=== PATIENT | female | born 1980 | race African-American/Black ===

== ENCOUNTER 2020-02-22 00:41 | Outpatient (CLI) | payer BC, SELFPAY ==
[2020-02-22 19:20] LABS: SARS-CoV-2 RNA PCR Positive
== END 2020-02-22 00:42 | disposition home or self-care (01) ==
LOC: ANHCOVIDDT 00:42
PROVIDERS: Anesthesiology; PCP Physician Assistant; Visit Provider Obstetrics & Gynecology
DX: U07.1 COVID-19 (principal)
CPT/HCPCS: 87635; C9803; U0003

== ENCOUNTER 2020-03-28 00:36 | Outpatient (CLI) | payer BC, SELFPAY ==
[2020-03-28 19:34] LABS: SARS-CoV-2 RNA PCR Negative
== END 2020-03-28 00:37 | disposition home or self-care (01) ==
LOC: ANHCOVIDDT 00:37
PROVIDERS: PCP Physician Assistant; Visit Provider Obstetrics & Gynecology
DX: Z01.812 Encounter for preprocedural laboratory examination (principal); Z20.828 Contact with and (suspected) exposure to other viral communicable diseases
CPT/HCPCS: 87635; C9803; U0003

== ENCOUNTER 2020-03-30 01:22 | Day surgery (SDC) | payer BC, SELFPAY ==
[2020-02-11 15:21] VITALS: BMI 43.5
[2020-03-30] VITALS (8 sets, daily range): BP systolic 100–157; BP diastolic 56–93; PULSE 76–98; RESP 15–20; TEMP 36.4–36.6; O2SAT 98–100
--- NOTE | 2020-03-30 07:05 | WPDHPUPDATE1 ---
History and Physical Update Update Date/Time: 03/30/20 07:05 History and Physical has been reviewed, including an updated exam of the patient. There are NO changes in the patient's condition. Risks, benefits, and alternatives have been discussed and questions answered. Patient agrees to proceed with procedure.
[2020-03-30] MEDS: ACETAMINOPHEN 500 MG TABLET 1000 MG PO (07:38)
[2020-03-30] MEDS: LACTATED RINGERS 1,000 ML 30 ML IV CONT ×2 (07:38→09:39)
[2020-03-30] MEDS: KETOROLAC 15 MG/ML VIAL (*BKC) IV PUSH (07:38)
--- NOTE | 2020-03-30 07:49 | WPDANESEPPF ---
Anes - Initial Pre Proc Eval Procedure: Operation Date: 03/30/20 08:15 Proposed Procedures p Laparoscopic Bilateral Tubal Sterilization with Cautery - Edi Arvizu MD s Laparoscopic Left Ovarian Cystectomy - Edi Arvizu MD Date/Time: 03/30/20 07:49 Surgeon: Edi Arvizu MD Pre Op Diagnosis: sterilization, left ovarian cyst Patient Data Age: 39 Gender: F Height: 5 ft 7 in Weight: 126.1 kg Allergies Allergy/AdvReac Type Severity Reaction Status Date / Time Penicillins Allergy Severe HIVES/THROAT Verified 03/16/20 13:14 SWELLING Home Medications Medication Instructions Recorded Confirmed Type cetirizine 10 mg PO DAILY 02/11/20 03/16/20 History elderberry fruit and flower 1 cap PO DAILY 02/11/20 03/16/20 History meloxicam 7.5 mg PO DAILY 02/11/20 03/16/20 History Patient hx anesthesia problems: post op nausea/vomiting Family hx anesthesia problems: none PMFSH Past Medical History Medical History Morbid obesity GABE (obstructive sleep apnea) Social History Social History Smoking status: Never smoker Substance use type: does not use Living arrangements: with family Gender identity (if verbalized by the patient): Female Spiritual care concerns: No Anes - Eval Final PreProcedure Day of Procedure 03/30/20 07:49 Patient weight: morbidly obese Heart: regular rate and rhythm Lungs: clear to auscultation Airway: Mallampati scale class II Neurological: alert and oriented Last oral intake: >/= 8 hours ASA classification: III Emergent: no Anesthetic plan: proceed Anesthesia type and monitoring: general ETT and standard monitoring Informed Consent: The patient's anesthetic plan and its attendant risks and benefits were discussed with the patient/family/POA. Questions were solicited and answers provided to the satisfaction of the patient/family/POA.
[2020-03-30] MEDS: SCOPOLAMINE 1.5 MG PATCH TRANSDERM (07:56)
--- NOTE | 2020-03-30 09:49 | P.OP_ITS ---
Procedure Note - Detailed Date of procedure: 03/30/20 Pre-op diagnosis: sterilization, left ovarian cyst Post-op diagnosis: same ( Hemoperitoneum, bilateral ovarian cysts) Procedure performed: Laparoscopic bilateral tubal ligation, bilateral ovarian cystectomy Description of procedure: The patient was taken the operating room. She was prepped and draped in the dorsal lithotomy position after induction of general anesthesia. A 5 mm left upper quadrant incision was made in the abdominal skin with a scalpel. A 5 mm trocar was inserted the intra-abdominal cavity under direct visualization of the scope. A 5 mm left lower quadrant incision was made with the scalp on the abdominal skin and a 5 mm trocar was inserted the intra- abdominal cavity under direct visualization of the scope. A 5 mm infraumbilical incision was made with scalpel and a 5 mm trocar was inserted into the intra- abdominal cavity under direct visualization of the scope. The bilateral ovarian cystectomy was performed using cautery and sharp dissection. The cysts were each on removed and the capsules were removed and the cut surfaces were cauterized. The tubal ligation was performed. in the ampullary region of each fallopian tube a 2 cm segment was completely desiccated using bipolar cautery. The pelvis was irrigated with copious amounts of normal saline. The pneumoperitoneum was reduced. The trocars were removed. 2The patient was taken recovery room stable condition. Sponge lap and needle counts were correct x2. Anesthesia: GETA Surgeon: Edi Arvizu MD Estimated blood loss (mL): 20 Drains: No Packing: No Complications: No immediate complications Condition: stable Disposition: PACU Findings: Hemoperitoneum in the pelvis, bilateral ovarian cysts approximately 3 cm.
== END 2020-03-30 11:35 | disposition home or self-care (01) ==
PROVIDERS: PCP Physician Assistant; Visit Provider Obstetrics & Gynecology
PROC: (CPT 58671; principal; 2020-03-30 08:15)
PROC: (CPT 49320; 2020-03-30 08:15)
DX: Z30.2 Encounter for sterilization (principal); N83.12 Corpus luteum cyst of left ovary; N83.11 Corpus luteum cyst of right ovary
CPT/HCPCS: 58670; 58662; 88305; A9270; J0330; J1100; J1885; J2250; J2405; J2704; J2710; J3010; J7030; J7120

== ENCOUNTER → 2020-04-06 14:39 | Outpatient (CLI) | payer BC, SELFPAY ==
--- NOTE | ~2020-04-06 | CT_ITS ---
EXAMINATION: CT abdomen pelvis w con DATE: 04/06/2020 15:09 INDICATION: Postoperative abdominal pain for one week. Nausea. Left ovarian mass, left fallopian tube and IUD were removed. TECHNIQUE: Computed tomography (CT) of the abdomen and pelvis was performed with 100 cc Omnipaque 350 intravenous contrast. Automated exposure control and iterative reconstruction technique were employe d. Exam dose: 1029.30 mGy-cm total exam DLP. COMPARISON: 07/15/2019 pelvic ultrasound examination FINDINGS: The lung bases are clear of infiltrate or consolidation. Normal heart size. No pericardial or pleural effusion. Multiple gallstones are noted within a contracted gallbladder. No bile duct or pancreatic duct dilata tion. No hepatic, splenic, pancreatic space-occupying mass lesion. Normal morphology of the adrenal glands. No renal mass lesion or hydroureteronephrosis. Normal appendix. Normal caliber of the abdominal aorta. No intraperitoneal or retroperitoneal or pelvic mass lesion or adenopathy or ascites. The uterus, adnexal areas and urinary bladder are unremarkable. Included skeletal structures are unremarkable. IMPRESSION: Cholelithiasis Reviewed, dictated and finalized at [facility] Reviewed, dictated and finalized at [facility]. IMPRESSION: Cholelithiasis
== END ==
PROVIDERS: Visit Provider Obstetrics & Gynecology
DX: G89.18 Other acute postprocedural pain (principal); K80.20 Calculus of gallbladder without cholecystitis without obstruction
CPT/HCPCS: 74177; Q9967

== ENCOUNTER 2021-02-24 18:45 | Emergency (ER) | payer BC, SELFPAY ==
--- NOTE | ~2021-02-24 | CT_ITS ---
EXAMINATION: CT abdomen pelvis w con DATE: 02/25/2021 00:48 INDICATION: Right lower quadrant abdominal pain TECHNIQUE: Computed tomography (CT) of the abdomen and pelvis was performed with 100 cc Omnipaque 350 intravenous contrast. Automated exposure control and iterative reconstruction technique were employe d. Exam dose: 1440.55 mGy-cm total exam DLP. COMPARISON: 04/06/2020 CT abdomen pelvis FINDINGS: The lung bases are clear. Normal heart size. No pericardial or pleural effusion. The gallbladder is contracted. Cholelithiasis. No gallbladder wall thickening or pericholecystic flui d or fat collection. No bile duct or pancreatic duct dilatation. No hepatic, splenic, pancreatic, and adrenal or renal space-occupying mass lesion is evident. Normal caliber of the abdominal aorta. No intraperitoneal or retroperitoneal or pelvic mass lesion or adenop athy or ascites. Normal appendix. No bowel obstruction, bowel wall thickening, pneumatosis or intraperitoneal free air . Uterus, adnexa, urinary bladder appear unremarkable. Small fat-containing umbilical hernia. Included skeletal structures are unremarkable. IMPRESSION: Cholelithiasis Normal appendix Reviewed, dictated and finalized at [facility]. Reviewed, dictated and finalized at [facility].
[2021-02-24 18:48] VITALS: BP 142/83; PULSE 87; RESP 20; TEMP 36.7; O2SAT 100
[2021-02-24 19:06] LABS: Basophils Percent Auto 0.2 % (0.2-1.2); Eosinophils Absolute Auto 0.2 K/mm3 (0-0.3); Eosinophils Percent Auto 1.8 % (0-4.4); Hematocrit 39.5 % (37.0-47.0); Hemoglobin 12.5 g/dL (12.0-15.0); Immature Granulocyte Absolute 0.01 K/mm3 (0.00-0.031); Immature Granulocyte Percent A 0.1 % (0-0.5); Lymphocytes Absolute Auto 4.29 K/mm3 (0.9-3.2); Lymphocytes Percent Auto 52.6 % (18.3-44.2); Mean Corpuscular HGB Conc 31.6 g/dl (32-36); Mean Corpuscular Hemoglobin 27.1 pg (26-34); Mean Corpuscular Volume 85.7 fl (80-100); Mean Platelet Volume 8.2 fl (7.4-10.4); Monocytes Absolute Auto 0.6 K/mm3 (0.1-0.6); Monocytes Percent Auto 7.2 % (2.6-8.5); Neutrophils Absolute Auto 3.1 K/mm3 (1.3-6.7); Neutrophils Percent Auto 38.1 % (45.5-73.1); Platelet Count Result 375 k/mm3 (150-375); Red Blood Count 4.61 M/mm3 (4.2-5.4); Red Cell Distribution Width 13.4 % (11.5-14.5); White Blood Count 8.2 K/mm3 (4.5-10.0)
[2021-02-24 19:24] LABS: Add Urine Microscopic? YES; Appearance Urine Cloudy (Clear); Bilirubin Urine Negative (Negative); Blood Urine 3+ (Negative); Glucose Urine UA Negative (Negative); Ketones Urine Negative (Negative); Leukocyte Esterase Ur 1+ LEU/UL (Negative); Nitrate Urine Negative (Negative); Protein Urine 1+ mg/dL (Negative); RBC Urine >75 /hpf (0-2); Specific Grav Ur 1.018 (1.001-1.035); Squamous Epithelial Cell Urine Moderate /hpf (Few); Urobilinogen Urine Negative mg/dL (<2.0); WBC Urine 51-75 /hpf
[2021-02-24 19:25] LABS: Color Urine Brown (Yellow)
[2021-02-24 19:28] LABS: Alanine Aminotransferase 14 U/L (4-35); Albumin Level 4.2 g/dL (3.5-5.1); Alkaline Phosphatase 73 U/L (38-126); Anion Gap 10 mmol/L (8-16); Aspartate Amino Transferase 23 U/L (14-36); Bilirubin,Total 0.3 mg/dL (0.2-1.3); Blood Urea Nitrogen 14 mg/dL (7-17); Calcium 9.1 mg/dL (8.4-10.2); Carbon Dioxide 26 mmol/L (22-30); Chloride 103 mmol/L (98-107); Estimated CRCL calculation 112 ml/min; Estimated Glomerular Filt Rate > 60; Glucose 92 mg/dL (65-110); Lipase 116 U/L (23-300); Potassium 3.8 mmol/L (3.4-5.0); Sodium 139 mmol/L (137-145)
[2021-02-24 21:23] VITALS: BP 159/90; PULSE 79; RESP 17; TEMP 36.2; O2SAT 100
--- NOTE | 2021-02-24 23:22 | ED.ABDPAIN ---
HPI - Abdominal Pain General Chief Complaint: Abdominal Pain Stated Complaint: abd pain, n/v/d Time Seen by Provider: 02/24/21 23:03 Source: patient and RN notes reviewed Mode of arrival: ambulatory Limitations: no limitations History of Present Illness HPI narrative: This is a 40 year old female who presents for evaluation of right abdominal pain with nausea, vomiting and diarrhea. She states she developed mid abdominal soreness on Saturday. She developed nausea, vomiting and diarrhea on Saturday, and it has continued for the past 3 days. Currently she has nausea but no vomiting. She also reports she developed right lower abdominal pain on , and her pain radiates around to her back. She denies fever but she is complaining of chills. She is also concerned that she started having heavy vaginal bleeding yesterday and her last menstrual period was in the beginning of February. Related Data Allergies Allergy/AdvReac Type Severity Reaction Status Date / Time Penicillins Allergy Unknown Hives Verified 02/25/21 00:16 cortisone AdvReac Jittery Verified 02/25/21 00:17 Review of Systems Review of Systems: All systems reviewed & are unremarkable except as noted in HPI and below PMFSH Past Medical History Medical History (Updated 02/25/21 @ 02:34 by Brina Dalal MD) Patient denies medical problems Surgical History Surgical History (Updated 02/24/21 @ 23:26 by Brina Dalal MD) H/O tubal ligation S/P carpal tunnel release Family History Family History (Updated 04/29/18 @ 16:16 by DOCTOR UNKNOWN) Mother Diabetes mellitus Hypertension Sibling Diabetes mellitus Hypertension Social History Social History Gender identity (if verbalized by the patient): Female Exam Const: General: no acute distress and alert Orientation/consciousness: patient oriented x3 Eyes: EOM: EOMs intact bilaterally Resp: Effort & Inspection: normal respiratory effort and no retractions Auscultation: clear to auscultation bilaterally Cardio: Rate: regular rate Rhythm: regular rhythm Heart sounds: no murmurs GI: GI Palp: Yes Soft to palpation, Yes Tenderness to palpation present (GI) (RLQ, ), No Guarding due to palpation present (GI) and No Rigid due to palpation Auscultation: normal bowel sounds : General: Yes no CVA tenderness Skin: General skin exam: normal color Rashes: no rashes Neuro: General: patient oriented x3 and moves all extremities Course Reevaluation(s) Reevaluation #1: I discussed with patient Ct results and labs unremarkable other than UA. She reports her vaginal bleeding is minimal. She will follow up with employee relations representative regarding her abnormal uterine bleeding. Patient likely had viral gastroenteritis. Date: 02/25/21 Time: 02:24 Vital Signs Vital signs: Vital Signs Temperature 98.0 F 02/24/21 18:48 Pulse Rate 87 02/24/21 18:48 Respiratory Rate 20 02/24/21 18:48 Blood Pressure 142/83 H 02/24/21 18:48 Pulse Oximetry 100 02/24/21 18:48 Temperature 97.2 F L 02/24/21 21:23 Pulse Rate 72 02/25/21 03:28 Respiratory Rate 16 02/25/21 03:28 Blood Pressure 132/84 02/25/21 03:28 Pulse Oximetry 100 02/25/21 03:28 MDM - Abdominal Pain Lab Data Attestation: I reviewed the patient's lab results. Result diagrams: 02/24/21 18:59 02/24/21 18:59 Labs: Lab Results 02/24/21 02/24/21 02/24/21 Range/Units 18:59 18:59 19:08 WBC 8.2 (4.5-10.0) K/mm3 RBC 4.61 (4.2-5.4) M/mm3 Hgb 12.5 (12.0-15.0) g/dL Hct 39.5 (37.0-47.0) % MCV 85.7 (80-100) fl MCH 27.1 (26-34) pg MCHC 31.6 L (32-36) g/dl RDW 13.4 (11.5-14.5) % Plt Count 375 (150-375) k/mm3 MPV 8.2 (7.4-10.4) fl Immature Gran % (Auto) 0.1 (0-0.5) % Neut % (Auto) 38.1 L (45.5-73.1) % Lymph % (Auto) 52.6 H (18.3-44.2) % Briscoe % (Auto) 7.2 (2.6-8.5) % Eos % (Auto) 1.8 (0-4.4) % Baso % (Auto)
[2021-02-24 23:25] VITALS: BP 154/96; PULSE 76; RESP 16; O2SAT 100
[2021-02-25] MEDS: ONDANSETRON INJ 4 MG/2 ML VIAL IV PUSH (00:24)
--- NOTE | 2021-02-25 00:39 | PC.NURSE ---
Pt to CT via stretcher at this time.
[2021-02-25] MEDS: LACTATED RINGERS 1,000 ML 999 ML IV CONT (00:51)
[2021-02-25 03:28] VITALS: BP 132/84; PULSE 72; RESP 16; O2SAT 100
== END 2021-02-25 03:30 | disposition home or self-care (01) ==
PROVIDERS: Emergency Medicine; Emergency Provider General Practice; PCP Physician Assistant
DX: K52.9 Noninfective gastroenteritis and colitis, unspecified (principal); N93.9 Abnormal uterine and vaginal bleeding, unspecified; R82.90 Unspecified abnormal findings in urine
CPT/HCPCS: 36415; 74177; 80053; 81001; 81025; 83690; 85025; 87077; 87086; 87088; 87186; 96361; 96365; 96375; 99284; J0131; J2405; J7120; Q9967

== ENCOUNTER 2021-10-14 19:28 | Emergency (ER) | payer BC, SELFPAY ==
[2021-10-14] VITALS (7 sets, daily range): BP systolic 108–110; BP diastolic 81–84; PULSE 90; RESP 16; TEMP 35.9–36.4; O2SAT 97–100
--- NOTE | ~2021-10-14 | XR_ITS ---
EXAMINATION: XR hand LT min 3V DATE: 10/14/2021 20:10 INDICATION: Large laceration to palm of the left hand third assess for foreign body. TECHNIQUE: Posteroanterior, oblique and lateral views of the left hand were obtained. COMPARISON: None. FINDINGS: Bandaging material about the left hand which mildly limits assessment of fine bone and soft tissue de tail. Bone alignment is normal. No fracture. Joint spaces are normal. No definitive radiopaque foreig n bodies identified. IMPRESSION: 1. No osseous abnormality or radiopaque foreign bodies. Just adjacent sigmoid limited by the superimp osed bandaging material and would consider obtaining follow-up radiographs when bleeding has been con trolled and the bandaging material can be removed. Reviewed, dictated and finalized at [facility]. [employer] [employer] IMPRESSION: 1. No osseous abnormality or radiopaque foreign bodies. Just adjacent sigmoid l imited by the superimposed bandaging material and would consider obtaining foll ow-up radiographs when bleeding has been controlled and the bandaging material can be removed.
--- NOTE | 2021-10-14 19:53 | ED.WOUNDLAC ---
HPI - Wound/Laceration General Chief Complaint: Wound/Laceration Stated Complaint: laceration Time Seen by Provider: 10/14/21 19:43 History of Present Illness HPI narrative: 41-year-old female presents the emergency room with complaints of multiple lacerations. Patient states that she was trying to put a bottle Back on a bottle, when the bottle broke. Patient suffered lacerations to her left palm, right middle finger and right thumb. Related Data Allergies Allergy/AdvReac Type Severity Reaction Status Date / Time Penicillins Allergy Unknown Hives Verified 02/25/21 00:16 cortisone AdvReac Jittery Verified 02/25/21 00:17 Review of Systems Review of Systems: CONSTITUTIONAL: Denies fever, chills, or sweats. EYES: Denies visual changes, redness, or discharge. ENT: Denies rhinorrhea, congestion, sore throat, or otalgia. CARDIOVASCULAR: Denies chest pain, palpitations, or edema. RESPIRATORY: Denies cough or dyspnea. GASTROINTESTINAL: Denies abdominal pain, nausea, vomiting, or diarrhea. GENITOURINARY: Denies dysuria or hematuria. SKIN: Reports lacerations to left hand, right fingers. MUSCULOSKELETAL: Denies back pain, joint pain, or myalgia. NEUROLOGIC: Denies headache, numbness, dizziness, or weakness. PSYCHIATRIC: Denies anxiety or depression. [facility] Past Medical History Medical History (Updated 10/14/21 @ 22:23 by Isaías Rodriguez, ISAIAH) Patient denies medical problems Surgical History Surgical History (Updated 02/24/21 @ 23:26 by Brina Dalal MD) H/O tubal ligation S/P carpal tunnel release Family History Family History (Updated 04/29/18 @ 16:16 by DOCTOR UNKNOWN) Mother Diabetes mellitus Hypertension Sibling Diabetes mellitus Hypertension Social History Social History Gender identity (if verbalized by the patient): Female Exam Narrative: GENERAL: Well-appearing, well-nourished, and in no acute distress. HEAD: Normocephalic, atraumatic. EYES: PERRLA and EOMI. ENT: Nares clear, no rhinorrhea or epistaxis. Mucous membranes moist. NECK: Supple. No adenopathy or masses. No carotid bruits or JVD CHEST: Clear to auscultation. No respiratory distress. No wheezes rales or rhonchi HEART: Regular rate and rhythm. No murmur heard. Normal peripheral pulses. ABDOMEN: Soft, nontender, nondistended, normal active bowel sounds. EXTREMITIES: Normal range of motion. No edema. SKIN: Warm, dry, no rash. Right hand: 3.5 cm linear laceration to leal surface of thumb; 1.0 cm linear laceration to anterior/ulnar surface of wrist; complete skin avulsion with underlying exposed bone to dorsum of right 3rd finger; Left hand: 10 cm laceration to the hypothenar eminence; 1cm laceration to leal surface of 5th digit; 1.5 cm laceration to leal surface of 2nd digit NEURO: No focal deficits. Alert and oriented x3. PSYCH: Normal mood and affect. Course Course Emergency Course: 2044: Lacerations of both hands repaired. Patient tolerated procedures well. Skin avulsion was covered with a nonstick gauze wrapped with Coban. Will start patient on a course of clindamycin, and follow-up with Dr. Chavez, hand surgeon on Saturday. 2149: Consulted with MD Chavez, he recommends f/u with his office on Saturday. Vital Signs Vital signs: Vital Signs Temperature 35.9 C L 10/14/21 19:33 Pulse Rate 90 10/14/21 19:33 Blood Pressure 110/82 10/14/21 19:33 Pulse Oximetry 97 10/14/21 19:33 Temperature 35.9 C L 10/14/21 19:33 Pulse Rate 90 10/14/21 19:33 Blood Pressure 110/82 10/14/21 19:33 Pulse Oximetry 97 10/14/21 19:33 Procedures Laceration Laceration 1: Date: 10/14/21 Time: 21:40 Side (If applicable): right (thumb) Size (cm): 3.5 Description: linear Depth: simple, single layer Local Anesthetic: lidocaine 1% Amount of anesthesia used (mL): 3 Pre-repair: irrigated ====== Skin Level ====== Skin layer closed with: nylon S
[2021-10-14] MEDS: SODIUM CHLORIDE 0.9% IV 1,000 ML 150 ML IV CONT (20:15)
[2021-10-14] MEDS: ONDANSETRON INJ 4 MG/2 ML VIAL IV PUSH (20:25)
[2021-10-14] MEDS: MORPHINE SULFATE (*CRX) 4 MG/ML INJ IV PUSH (20:25)
[2021-10-14] MEDS: TETANUS,DIPHTHERIA,AC PERTUSSIS ADULT (0.5 ML) BOOSTRIX IM (20:26)
[2021-10-14] MEDS: CLINDAMYCIN 600 MG/D5W 50 ML 600 MG/50 ML PIGGYBACK 100 MG IVPB (20:27)
[2021-10-14] MEDS: CELLULOSE OXIDIZED 2 x 3 INCH 1 PKT XX (20:27)
[2021-10-14] MEDS: LIDOCAINE HCL 1% LOCAL INJ 20 ML VIAL 10 ML INFILTRATE (21:54)
== END 2021-10-14 22:41 | disposition home or self-care (01) ==
PROVIDERS: Emergency Provider Nurse Practitioner Family; PCP Physician Assistant
DX: S61.412A Laceration without foreign body of left hand, initial encounter (principal); S61.212A Laceration without foreign body of right middle finger without damage to nail, initial encounter; S61.011A Laceration without foreign body of right thumb without damage to nail, initial encounter; Z23 Encounter for immunization; W25.XXXA Contact with sharp glass, initial encounter
CPT/HCPCS: 12005; 73130; 90471; 90715; 96361; 96365; 96375; 99284; J2270; J2405; J7030

== ENCOUNTER → 2021-10-28 00:16 | Outpatient (CLI) | payer BC, SELFPAY ==
[2021-10-28 13:35] LABS: SARS-CoV-2 RNA PCR Negative
== END ==
PROVIDERS: PCP Physician Assistant; Visit Provider Plastic Surgery
DX: Z01.812 Encounter for preprocedural laboratory examination (principal); Z20.822 Contact with and (suspected) exposure to COVID-19
CPT/HCPCS: C9803; U0003; U0005

== ENCOUNTER 2021-11-01 02:03 | Day surgery (SDC) | payer BC, SELFPAY ==
[2021-10-26 08:24] VITALS: BMI 42.3
--- NOTE | 2021-10-26 08:36 | PC.NURSE ---
Report to the Outpatient Waiting Room, entrance under the green pavilion located off [facility], at time 0630 on date 11/01/21. OR Time: 0830. - You and your visitor will be asked a series of questions to screen for COVID 19 for your protection. - A mask is required within the hospital. One visitor will be allowed to accompany the patient into the hospital. Patients visitor will be instructed to remain with patient at all times or leave the building. We will allow the visitor to come back to the postoperative area when patient is ready. Preoperative COVID Testing Requirements: COVID TEST 10/28 AT 0915 No COVID Test needed if: (proof is required; if not received patient will have Rapid Test prior to entry) - Patient has received COVID Vaccine at least 14 days prior to procedure date or - Patient has positive COVID test result within last 90 days of surgery date. COVID Test needed if above criteria is not met If not COVID vaccinated a COVID test must be conducted within 72 hours of surgery and patient is asked to isolate self from time of testing until procedure. You will go to the [facility] for your COVID testing. The [facility] site is located at the corner of [address] from [facility]. You will only be called if COVID results are positive and your surgeon may reschedule your elective surgery date. Patients may have clear liquids (water, carbonated beverages, clear teas, apple juice) until 3 hours prior to surgery with a maximum of 20 ounces. - No food from midnight until time of surgery Take the following medications with a SIP of water the morning of surgery: ANTIBIOTIC, TYLENOL (IF NEEDED) Medications to discontinue per physician: JHON Date to take last dose: PER DR. MICHELLE Please no make-up, nail vietnamese, hairspray, perfume, deodorant, or body powder the day of surgery. No jewelry (including any body piercings) or valuables the day of surgery, leave them at home. Please take a shower or bath the night before, or the morning of, surgery with an antibacterial soap. Wear comfortable, loose fitting clothing. - Jewelry must be removed prior to entering the operating room. Rings and piercings that are not removed may be cut off. - The hospital will not accept responsibility for valuables. - Please leave all valuables, including medications, at home the day of surgery. If you are going home after surgery, a licensed trolley coach driver must drive you home. - NO public transportation without another adult. - We recommend that an adult stay with you for 24 hours following discharge. - We also recommend that you do not drive, make important decision, drink alcoholic beverages, or take any drugs that were not prescribed by your health care provider for at least 24 hours after your discharge time. Follow any additional instructions given to you from your surgeon. Telephone instructions given to ARMIN MATIAS and asked if any additional questions and then verbalized understanding. Patient advised to call surgeon office or pre surgery nurse liaison [phone] if any additional questions.
--- NOTE | 2021-10-31 14:26 | P.PNAN_ITS ---
Anes - Initial Pre Proc Eval Procedure: Operation Date: 11/01/21 08:30 Proposed Procedures p Repair Digital Nerve Left Palm and Fifth Finger, Possible Vein Conduit Graft - Coleman Chavez MD Date/Time: 10/31/21 14:26 Surgeon: Coleman Chavez MD Pre Op Diagnosis: laceration digital nerve left palm and 5th finger Patient Data Age: 41 Gender: F Height: 1.7 m Weight: 122.47 kg Allergies Allergy/AdvReac Type Severity Reaction Status Date / Time Penicillins Allergy Unknown Hives Verified 10/26/21 08:21 cortisone AdvReac Jittery Verified 10/26/21 08:21 Home Medications Medication Instructions Recorded Confirmed Type clindamycin HCl 300 mg PO Q8H #30 cap 10/14/21 10/26/21 Rx acetaminophen [Tylenol Ex Str 500 mg PO Q6H PRN 10/26/21 10/26/21 History Rapid Release] naproxen sodium [Aleve] 440 mg PO BID 10/26/21 10/26/21 History Patient hx anesthesia problems: none Family hx anesthesia problems: none Results Review: All pre-operative results and documents have been reviewed as part of the pre-operative evaluation. [facility] Past Medical History Medical History (Updated 10/31/21 @ 14:26 by Harinder Forrest MD) Morbid obesity GABE (obstructive sleep apnea) Surgical History Surgical History (System 10/17/21 @ 15:22 by Anneliese Osborn) H/O LEEP H/O tubal ligation History of arthroplasty of right ankle History of carpal tunnel release of both wrists History of tubal ligation 03/30/2020-with fulguration of oviducts, Dr. Arvizu S/P carpal tunnel release Family History Family History (System 10/17/21 @ 15:22 by Anneliese Osborn) Mother Diabetes mellitus Hypertension Sibling Diabetes mellitus Hypertension Father Heart disease Diabetes mellitus Hypertension Carcinoma of colon Acute myocardial infarction Mother Heart disease Hypertension Diabetes mellitus Sibling Heart disease Diabetes mellitus Hypertension Bipolar 1 disorder Social History Social History (System 10/17/21 @ 15:22 by Anneliese Osborn) Smoking status: Never smoker Alcohol intake: never Alcohol use details: WINE RARELY Substance use: never Substance use type: does not use Living arrangements: with family Additional occupation/education comments: [employer] Gender identity (if verbalized by the patient): Female Spiritual care concerns: No Anes - Eval Final PreProcedure Day of Procedure 10/31/21 14:26 Patient weight: morbidly obese Heart: regular rate and rhythm Lungs: clear to auscultation and normal air movement Airway: Mallampati scale class II Neurological: alert and oriented Last oral intake: >/= 8 hours ASA classification: III Emergent: no Anesthetic plan: proceed Anesthesia type and monitoring: general LMA Results Review: All pre-operative results and documents have been reviewed as part of the pre-operative evaluation. Informed Consent: The patient's anesthetic plan and its attendant risks and benefits were discussed with the patient/family/POA. Questions were solicited and answers provided to the satisfaction of the patient/family/POA.
[2021-11-01] VITALS (9 sets, daily range): BP systolic 115–149; BP diastolic 61–85; PULSE 85–126; RESP 18–22; TEMP 36.1–36.4; O2SAT 96–100
[2021-11-01] MEDS: LACTATED RINGERS 1,000 ML 30 ML IV CONT (07:00)
--- NOTE | 2021-11-01 07:17 | WPDHPUPDATE1 ---
History and Physical Update Update Date/Time: 11/01/21 07:17 History and Physical has been reviewed, including an updated exam of the patient. There are NO changes in the patient's condition. Risks, benefits, and alternatives have been discussed and questions answered. Patient agrees to proceed with procedure.
[2021-11-01] MEDS: BUPIVACAINE HCL 0.5% PF 30 ML VIAL INFILTRATE (08:47)
--- NOTE | 2021-11-01 12:34 | W.PM.PROC2 ---
Procedure Note - Detailed Date of Procedure 11/01/21 Pre-op Diagnosis laceration digital nerve left palm and 5th finger Post-op Diagnosis Other (Complete laceration of the ulnar digital nerve to 5th finger in the hand.) Procedure Performed Primary neurorrhaphy ulnar digital nerve to the 5th finger in the hand. Surgeon Coleman Chavez MD [employer] Anesthesia General Description of Procedure The 2 lacerations on the right ulnar hand and finger were marked on the patient in the holding area. She was taken to the operating room she was placed supine on the operating table. Time-out was held confirmed. She was given general endotracheal anesthesia. The right upper extremity was prepped draped usual fashion. The sites were marked for surgical access and locally infiltrated with 1% lidocaine with epinephrine. The extremity was exsanguinated and the tourniquet inflated to 250 mmHg. The incision in the palm was opened 1st. I followed the line of the laceration and extended distally. The skin flaps were elevated and the hematoma was identified just medial to the hypothenar muscle mass. This was evacuated. There were tears in the muscle locally. The tendons were intact the ulnar digital nerve was identified distally and followed under our skin flap to its lacerated end. I probed the opposite the side of the wound in the same tissue plane and identified the proximal end of ulnar digital nerve. Both were trimmed about 2 mm to fresh fascicular bundles. We were able to easily coapted these . Common digital nerve to the 4th and 5th was identified and confirmed unharmed. There 2nd incision was made on the 5th finger. This was was an ulnar based mid lateral incision and the flap was elevated to the ulnar side. The radial digital nerve was confirmed to be intact but there was a small hematoma there that did not appear to have lacerated the nerve. The ulnar digital nerve was also explored and found to be intact but the epineurim may have been lacerated. No repairs were necessary on the digital nerves in the finger. We re-explored the palmar wound identifying the 2 ends of the ulnar digital nerve again. The microscope was brought to the table. The hand was supported by the lead hand. The 2 ends of the ulnar digital nerve were brought together without strain and the repair was performed 8 0 nylon in the the epineurium. Two stitches were placed. The skin was then closed with interrupted running 5 0 nylon suture. The tourniquet had been let down at 60 minutes for 15 minutes and reinflated for about 20 minutes for the nerve repair. It was released prior to skin closure. A small bulky bandage was applied and the ulnar gutter splint, with the wrist flexed about 15? and the metacarpophalangeal joint flexed about 15?, was applied. 8 milliliter of Marcaine 5% plain was injected in the region. Patient was discharged from the operating room stable condition. No antibiotics were given she did receive Toradol IV . Estimated Blood Loss 10 Drains No Packing No Pathology None sent Complications No immediate complications Condition Stable Disposition PACU
[2021-11-01] MEDS: fentaNYL CITRATE INJ (*CRX) 100 MCG/2 ML VIAL 25 MCG IV PUSH ×4 (12:41→12:50)
[2021-11-01] MEDS: oxyCODONE HCL (*CRX) 5 MG TAB IR PO (13:12)
== END 2021-11-01 14:05 | disposition home or self-care (01) ==
PROVIDERS: PCP Physician Assistant; Visit Provider Plastic Surgery
PROC: (CPT 64831; principal; 2021-11-01 08:30)
DX: S64.02XA Injury of ulnar nerve at wrist and hand level of left arm, initial encounter (principal); W25.XXXA Contact with sharp glass, initial encounter; G47.33 Obstructive sleep apnea (adult) (pediatric); E66.01 Morbid (severe) obesity due to excess calories; Z68.41 Body mass index [BMI] 40.0-44.9, adult
CPT/HCPCS: 64831; 69990; A9270; J1100; J2250; J2405; J2704; J3010; J7120

== ENCOUNTER 2022-08-03 10:23 | Emergency (ER) | payer BC, SELFPAY ==
--- NOTE | ~2022-08-03 | CT_ITS ---
CT Abdomen and Pelvis with contrast. History: Right flank pain, dysuria. Spiral CT of the abdomen and pelvis was performed after the administration of intravenous contrast. 1 00 cc of Omnipaque 350 was administered intravenously without complication. Dose reduction technique was used on this scan by utilizing automated exposure control and iterative reconstruction technique. The dose-length product (DLP) was 1502.42 mGy-cm. COMPARISON: 02/25/2021 Findings: Scans through the lung bases demonstrate mild atelectatic change. Diffuse fatty infiltration of the liver present. Calcified gallstones are present. The spleen, pancre as, adrenals and kidneys are within normal limits. No evidence of aortic aneurysm. No lymphadenopat hy is seen. There is no evidence of bowel obstruction. There is no evidence to suggest acute appendicitis or dive rticulitis. Images through the pelvis were performed. Small bilateral adnexal cysts are present. Urinary bladder unremarkable. No ascites is seen. Impression: Diffuse fatty infiltration of the liver. Cholelithiasis. Small bilateral adnexal cysts. Reviewed, dictated and finalized at location . [employer] Impression: Diffuse fatty infiltration of the liver. Cholelithiasis. Small bilateral adnexal cysts.
[2022-08-03 10:30] VITALS: BP 150/97; PULSE 98; RESP 16; TEMP 36.4; O2SAT 100
--- NOTE | 2022-08-03 10:52 | ED.BACK ---
HPI - Back Pain/Injury General Chief Complaint: Back Pain/Injury Stated Complaint: lower right back pain Time Seen by Provider: 08/03/22 10:31 History of Present Illness HPI Narrative: Patient is a 42-year-old female here for evaluation of atraumatic right-sided back pain for the past week. Patient states the pain radiates down her right leg and is associated with occasional paresthesias down that extremity. Patient states that she had similar issues in 10 years ago. She attempted 400 mg of ibuprofen 8 hours ago without relief. She denies any saddle anesthesia, incontinence or retention of bowel or bladder, or fevers. Related Data Home Medications Medication Instructions Recorded Confirmed acetaminophen 500 mg tablet 500 mg PO Q6H PRN Pain 10/26/21 11/01/21 naproxen sodium 220 mg tablet 440 mg PO BID 10/26/21 11/01/21 (Aleve) Allergies Allergy/AdvReac Type Severity Reaction Status Date / Time Penicillins Allergy Unknown Hives Verified 11/01/21 08:20 cortisone AdvReac Jittery Verified 11/01/21 08:20 Review of Systems Review of Systems: Gen: Denies fevers or chills Eyes: Denies eye pain or visual change ENT: Denies congestion Respiratory: Denies shortness of breath or cough CV: Denies chest pain or palpitations GI: Denies abdominal pain nausea, emesis or diarrhea denies burning, urgency, frequency or hematuria Musculoskeletal: Reports right-sided back pain. Neuro: Denies numbness, tingling, weakness or focal weakness Skin: Denies rash Except as documented, all other systems reviewed and negative [facility] Past Medical History Medical History Morbid obesity GABE (obstructive sleep apnea) Surgical History Surgical History H/O LEEP H/O tubal ligation History of arthroplasty of right ankle History of carpal tunnel release of both wrists History of tubal ligation 03/30/2020-with fulguration of oviducts, Dr. Arvizu S/P carpal tunnel release Family History Family History (System 10/17/21 @ 15:22 by Anneliese Osborn) Mother Diabetes mellitus Hypertension Sibling Diabetes mellitus Hypertension Father Heart disease Diabetes mellitus Hypertension Carcinoma of colon Acute myocardial infarction Mother Heart disease Hypertension Diabetes mellitus Sibling Heart disease Diabetes mellitus Hypertension Bipolar 1 disorder Social History Social History (System 10/17/21 @ 15:22 by Anneliese Osborn) Smoking status: Never smoker Alcohol intake: never Alcohol use details: WINE RARELY Substance use: never Substance use type: does not use Additional occupation/education comments: [employer] Gender identity (if verbalized by the patient): Female Spiritual care concerns: No Exam Narrative: APPEARANCE: Well appearing, no pain in distress, well-nourished. Head: Normocephalic and atraumatic. EYES: PERRLA/EOMI, conjunctivae clear NOSE: No nasal drainage EARS: External ear normal in appearance THROAT: Oropharynx is clear. Mucous membranes are moist. NECK: Supple. No adenopathy, no masses. RESPIRATORY: Airway patent, respirations nonlabored. Clear to auscultation bilaterally, no rales, rhonchi, wheezing. CARDIOVASCULAR: Regular rate and rhythm without murmurs, rubs, or gallops. ABDOMINAL: Normoactive bowel sounds. Soft, nontender, nondistended. No rebound tenderness or guarding. MUSCULOSKELETAL: Straight leg raise positive on the right. Extremities are warm and well-perfused. Moves all extremities well. No edema. NEURO: Normal speech. No focal neurologic deficits. SKIN: Skin is warm and dry. No rashes. PSYCHIATRIC: Normal affect/mood.. Course Vital Signs Vital signs: Vital Signs Temperature 97.6 F 08/03/22 10:30 Pulse Rate 98 08/03/22 10:30 Respiratory Rate 16 08/03/22 10:30 Blood Pressure 150/97 H 08/03/22 10:30 Pul
[2022-08-03] MEDS: LIDOCAINE 5% PATCH 1 PATCH TRANSDERM (11:04)
[2022-08-03] MEDS: MELOXICAM 7.5 MG TABLET PO (11:04)
[2022-08-03] MEDS: ACETAMINOPHEN 325 MG TABLET 650 MG PO (11:04)
[2022-08-03 11:37] LABS: Add Urine Microscopic? YES; Appearance Urine Clear (Clear); Bilirubin Urine Negative (Negative); Blood Urine Negative (Negative); Color Urine Yellow (Yellow); Glucose Urine UA 2+ mg/dL (Negative); Ketones Urine Negative (Negative); Leukocyte Esterase Ur 2+ LEU/UL (Negative); Nitrate Urine Negative (Negative); Protein Urine Trace mg/dL (Negative); Specific Grav Ur 1.025 (1.001-1.035)
[2022-08-03 11:44] LABS: Bacteria Urine Trace /hpf; Mucus Urine Rare /lpf; RBC Urine 51-75 /hpf (0-2); Squamous Epithelial Cell Urine Many /hpf (Few); WBC Urine 31-50 /hpf
[2022-08-03 12:34] LABS: Basophils Percent Auto 0.6 % (0.2-1.2); Eosinophils Absolute Auto 0.1 K/mm3 (0-0.3); Eosinophils Percent Auto 1.7 % (0-4.4); Hematocrit 42.6 % (37.0-47.0); Hemoglobin 13.5 g/dL (12.0-15.0); Immature Granulocyte Absolute 0.02 K/mm3 (0.00-0.031); Immature Granulocyte Percent A 0.3 % (0-0.5); Lymphocytes Absolute Auto 2.55 K/mm3 (0.9-3.2); Lymphocytes Percent Auto 36.6 % (18.3-44.2); Mean Corpuscular HGB Conc 31.7 g/dl (32-36); Mean Corpuscular Hemoglobin 26.8 pg (26-34); Mean Corpuscular Volume 84.7 fl (80-100); Mean Platelet Volume 8.7 fl (7.4-10.4); Monocytes Absolute Auto 0.5 K/mm3 (0.1-0.6); Monocytes Percent Auto 7.8 % (2.6-8.5); Neutrophils Absolute Auto 3.7 K/mm3 (1.3-6.7); Platelet Count Result 394 k/mm3 (150-375); Red Blood Count 5.03 M/mm3 (4.2-5.4); Red Cell Distribution Width 13.8 % (11.5-14.5)
[2022-08-03] MEDS: MORPHINE SULFATE (*CRX) 4 MG/ML INJ IV PUSH (12:34)
[2022-08-03 12:52] LABS: Alanine Aminotransferase 38 U/L (6-35); Albumin Level 4.1 g/dL (3.5-5.1); Alkaline Phosphatase 111 U/L (38-126); Anion Gap 6 mmol/L (8-16); Aspartate Amino Transferase 38 U/L (14-36); Bilirubin,Total 0.6 mg/dL (0.2-1.3); Blood Urea Nitrogen 5 mg/dL (7-17); Calcium 8.4 mg/dL (8.4-10.2); Carbon Dioxide 30 mmol/L (22-30); Chloride 100 mmol/L (98-107); Estimated CRCL calculation 181 ml/min; Estimated Glomerular Filt Rate > 60; Glucose 258 mg/dL (65-110); Potassium 4.2 mmol/L (3.4-5.0); Sodium 136 mmol/L (137-145)
[2022-08-03 13:45] VITALS: BP 140/72; PULSE 76; RESP 16; O2SAT 98
== END 2022-08-03 13:45 | disposition home or self-care (01) ==
PROVIDERS: Emergency Provider Physician Assistant; PCP Physician Assistant
DX: N39.0 Urinary tract infection, site not specified (principal); E66.01 Morbid (severe) obesity due to excess calories; Z68.42 Body mass index [BMI] 45.0-49.9, adult; G47.33 Obstructive sleep apnea (adult) (pediatric)
CPT/HCPCS: 36415; 74177; 80053; 81001; 81025; 85025; 87077; 87086; 87186; 96374; 99284; A9270; J2270; Q9967